=== PATIENT | male | born 1950 | race Two or more races ===

== ENCOUNTER 2016-11-18 18:25 | Inpatient (IN) | payer MEDICAID ==
[~2016-11-18] VITALS: Ht 171.4 cm; Wt 99.8 kg
[2016-11-18 19:24] LABS: Basophils # (auto) 0 uL; Basophils % (auto) 0.4 % (0.0-2.0); DEFINITIVE VIEW TRANSMISSION; Eosinophils # (auto) 0.2 uL; Eosinophils % (auto) 2.2 % (0.0-7.0); Hematocrit 51.1 % (41.0-53.0); Hemoglobin 16.6 g/dL (13.5-17.5); Lymphocytes # (auto) 3.5 uL; Lymphocytes % (auto) 31.8 % (10.0-50.0); Mean Corpuscular Hemoglobin 26.4 pg (28.0-32.0); Mean Corpuscular Hgb Conc. 32.5 g/dL (32.0-36.0); Mean Corpuscular Volume 81.4 fL (80.0-100.0); Monocytes % (auto) 9.3 % (0.0-12.0); Neutrophils # (auto) 6.1 uL; Neutrophils % (auto) 56.3 % (37.0-80.0); Platelet Count (auto) 194 10^3/uL (140-450); Red Cell Distribution Width 15.4 % (11.6-16.0); White Blood Cell 10.9 10^3/uL (4.4-10.8)
[2016-11-18 19:40] LABS: Albumin 4.3 g/dL (3.4-5.0); Bilirubin, Total 0.6 mg/dL (0.2-1.0); Calcium 8.8 mg/dL (8.5-10.1); Potassium 3.7 mmol/L (3.5-5.1); Total Protein 7.7 g/dL (6.4-8.2)
[2016-11-18 19:46] LABS: Urine Bilirubin Negative (Negative); Urine Blood 3+ /uL (Negative); Urine Color Red (Yellow); Urine Glucose Normal (Normal); Urine Ketone Negative (Negative); Urine Nitrite Negative (Negative); Urine RBC 24891 /hpf (0 - 3); Urine Urobilinogen Normal (Negative); Urine pH 7.5 (5.0-8.0)
[2016-11-19] MEDS ORDERED: LISINOPRIL 20 MG TAB PO ONE (08:00)
[2016-11-19] MEDS ORDERED: amLODIPine BESYLATE 5 MG TAB PO ONE (08:00)
[2016-11-19] MEDS ORDERED: METOPROLOL TARTRATE 50 MG TAB PO ONE (08:00)
[2016-11-19 11:50] VITALS: BP 137/86
[2016-11-19] MEDS ORDERED: ACETAMINOPHEN 500 MG TAB PO PRN (12:00)
[2016-11-19] MEDS ORDERED: cefTRIAXone 1GM/50ML D5W 50 ML IV ONE (12:00)
[2016-11-19] MEDS ORDERED: MORPHINE SULF INJ 2 MG/ML SYRINGE 1ML IV PRN ×2 (12:00)
[2016-11-19] MEDS: ACCU-CHEK COMFORT CURVE STRIP VI SCH ×3 (12:00→23:28)
[2016-11-19] MEDS ORDERED: DEXTROSE (50%) 50ML SYRG IV PRN (12:00)
[2016-11-19] MEDS ORDERED: PROMETHAZINE HCL 25 MG/ML 1ML IV PRN (12:00)
[2016-11-19] MEDS ORDERED: TEMAZEPAM 15 MG CAP PO PRN (12:00)
[2016-11-19] MEDS ORDERED: HYDROcodone-ACET 5/325MG TAB PO PRN (12:00)
[2016-11-19] MEDS ORDERED: LORazepam 0.5 MG TAB PO PRN (12:00)
[2016-11-19] MEDS ORDERED: NITROGLYCERIN 0.4 MG SL TAB SL PRN (12:00)
[2016-11-19] MEDS: SODIUM CHLORIDE 0.9% 1,000 ML IV SCH ×2 (12:39→22:00)
[2016-11-19] MEDS: FAMOTIDINE 20 MG TAB PO SCH ×2 (13:37→21:57)
[2016-11-19] MEDS ORDERED: LIDOCAINE 2% JELLY 11ml (GLYDO) UR ONE (15:45)
[2016-11-19 17:41] VITALS: BP 141/77
[2016-11-19 22:03] VITALS: BP 132/74
[2016-11-20 05:08] VITALS: BP 139/80
[2016-11-20 05:51] LABS: Basophils # (auto) 0 uL; Basophils % (auto) 0.2 % (0.0-2.0); DEFINITIVE VIEW TRANSMISSION; Eosinophils # (auto) 0.2 uL; Eosinophils % (auto) 1.7 % (0.0-7.0); Hematocrit 45.6 % (41.0-53.0); Hemoglobin 14.6 g/dL (13.5-17.5); Lymphocytes # (auto) 2.9 uL; Lymphocytes % (auto) 23.7 % (10.0-50.0); Mean Corpuscular Hemoglobin 26.2 pg (28.0-32.0); Mean Corpuscular Hgb Conc. 32.1 g/dL (32.0-36.0); Mean Corpuscular Volume 81.7 fL (80.0-100.0); Mean Platelet Volume 10.6 fL (7.4-10.4); Monocytes # (auto) 1.1 uL; Monocytes % (auto) 8.9 % (0.0-12.0); Neutrophils # (auto) 8.2 uL; Neutrophils % (auto) 65.5 % (37.0-80.0); Platelet Count (auto) 182 10^3/uL (140-450); Red Cell Distribution Width 16.1 % (11.6-16.0); White Blood Cell 12.4 10^3/uL (4.4-10.8)
[2016-11-20 06:03] LABS: Potassium 3.8 mmol/L (3.5-5.1)
[2016-11-20 06:09] LABS: Albumin 3.6 g/dL (3.4-5.0); BUN/Creatinine Ratio 13.3; Calcium 8.3 mg/dL (8.5-10.1)
[2016-11-20 06:21] LABS: Bilirubin, Total 0.7 mg/dL (0.2-1.0); Total Protein 6.7 g/dL (6.4-8.2)
[2016-11-20] MEDS: ACCU-CHEK COMFORT CURVE STRIP VI SCH (06:22)
[2016-11-20] MEDS: SODIUM CHLORIDE 0.9% 1,000 ML IV SCH ×2 (07:49→17:18)
[2016-11-20 08:24] VITALS: BP 140/92
[2016-11-20] MEDS: cefTRIAXone 1GM/50ML D5W 50 ML IV SCH (09:35)
[2016-11-20] MEDS: FAMOTIDINE 20 MG TAB PO SCH ×2 (09:36→21:31)
[2016-11-20] MEDS ORDERED: MECL-87 PO (11:43)
[2016-11-20] MEDS ORDERED: CHOL20007 PO (11:44)
[2016-11-20] MEDS ORDERED: METO-159 PO (11:45)
[2016-11-20] MEDS ORDERED: PRAV20TA3 PO ×2 (11:49→11:56)
[2016-11-20] MEDS ORDERED: METF-312 PO (11:50)
[2016-11-20] MEDS ORDERED: AMLO5TAB2 PO (11:51)
[2016-11-20] MEDS ORDERED: LISI40TA PO (11:52)
[2016-11-20] MEDS ORDERED: ASPI325T4 PO (11:52)
[2016-11-20 12:51] VITALS: BP 145/86
[2016-11-20 16:42] VITALS: BP 165/94
[2016-11-20 21:37] VITALS: BP 144/85
[2016-11-20] MEDS: METOPROLOL TARTRATE 50 MG TAB PO SCH (23:05)
[2016-11-21 04:33] VITALS: BP 133/86
[2016-11-21] MEDS: SODIUM CHLORIDE 0.9% 1,000 ML IV SCH (06:13)
[2016-11-21 09:00] VITALS: BP 143/86
[2016-11-21] MEDS ORDERED: amLODIPine BESYLATE 5 MG TAB PO SCH (10:00)
[2016-11-21] MEDS ORDERED: LISINOPRIL 20 MG TAB PO SCH (10:00)
[2016-11-21] MEDS: cefTRIAXone 1GM/50ML D5W 50 ML IV SCH (10:02)
[2016-11-21] MEDS: METOPROLOL TARTRATE 50 MG TAB PO SCH (10:06)
[2016-11-21] MEDS: FAMOTIDINE 20 MG TAB PO SCH (10:09)
[2016-11-21 12:38] VITALS: BP 142/73
[2016-11-21 12:53] LABS: Hepatitis B Surface Antibody Negative
[2016-11-21 13:47] VITALS: BP 143/86
[2016-11-21 14:40] VITALS: BP 142/73
== END 2016-11-21 14:40 | disposition home or self-care (01) | DRG 501 ==
LOC: ER 18:31 → TELE 18:32 → TELE-EAST 11-19 13:32 → EAST 11-21 07:42
PROVIDERS: ADMIT Internal Medicine; ATTEND Internal Medicine
DX: N40.1 Benign prostatic hyperplasia with lower urinary tract symptoms (principal); N28.1 Cyst of kidney, acquired; I10 Essential (primary) hypertension; E78.5 Hyperlipidemia, unspecified; R73.9 Hyperglycemia, unspecified; R79.89 Other specified abnormal findings of blood chemistry; E66.9 Obesity, unspecified; I25.10 Atherosclerotic heart disease of native coronary artery without angina pectoris; R31.9 Hematuria, unspecified; N40.0 Benign prostatic hyperplasia without lower urinary tract symptoms; Z79.82 Long term (current) use of aspirin; R33.8 Other retention of urine; Z82.49 Family history of ischemic heart disease and other diseases of the circulatory system; Z90.79 Acquired absence of other genital organ(s); Z95.5 Presence of coronary angioplasty implant and graft; Z68.34 Body mass index [BMI] 34.0-34.9, adult
CPT/HCPCS: 36415; 71010; 76775; 80053; 81001; 82962; 83036; 85025; 85049; 85652; 86141; 86704; 86706; 86708; 86803; 87086; 87340; J0696

== ENCOUNTER 2017-02-19 08:27 | Emergency (ER) | payer MEDICAID ==
[~2017-02-19] VITALS: Ht 172.7 cm; Wt 102.1 kg
[~2017-02-19 08:27] MED LIST: AMLO5TAB2 PO; ASPI325T4 PO; CHOL20007 PO; LISI40TA PO; MECL-87 PO; METF-312 PO; METO-159 PO; PRAV20TA3 PO
[2017-02-19 09:23] LABS: Urine Bilirubin Negative (Negative); Urine Color Colorless (Yellow); Urine Glucose Normal (Normal); Urine Ketone Negative (Negative); Urine Nitrite Negative (Negative); Urine RBC 1 /hpf (0 - 3); Urine Urobilinogen Normal (Negative); Urine pH 6.5 (5.0-8.0)
[2017-02-19 09:50] LABS: Urine Blood 2+ /uL (Negative)
[2017-02-19 10:47] VITALS: BP 141/83
[2017-02-19] MEDS ORDERED: LIDOCAINE HCL 2% TOP JELLY 5ML TOP ONE (22:56)
== END 2017-02-19 10:48 | disposition home or self-care (01) ==
LOC: ER 08:27
DX: R31.9 Hematuria, unspecified (principal); I25.10 Atherosclerotic heart disease of native coronary artery without angina pectoris; I10 Essential (primary) hypertension; E11.9 Type 2 diabetes mellitus without complications; E78.5 Hyperlipidemia, unspecified; Z79.82 Long term (current) use of aspirin; Z91.041 Radiographic dye allergy status; Z91.013 Allergy to seafood
CPT/HCPCS: 81001

== ENCOUNTER 2017-02-19 21:18 | Emergency (ER) | payer MEDICAID ==
[~2017-02-19] VITALS: Ht 172.7 cm; Wt 99.8 kg
[2017-02-19 22:28] LABS: Basophils # (auto) 0 uL; Basophils % (auto) 0.4 % (0.0-2.0); DEFINITIVE VIEW TRANSMISSION; Eosinophils # (auto) 0.3 uL; Eosinophils % (auto) 2.7 % (0.0-7.0); Hematocrit 51.1 % (41.0-53.0); Hemoglobin 16.6 g/dL (13.5-17.5); Lymphocytes # (auto) 2.3 uL; Lymphocytes % (auto) 21.2 % (10.0-50.0); Mean Corpuscular Hemoglobin 26.4 pg (28.0-32.0); Mean Corpuscular Hgb Conc. 32.5 g/dL (32.0-36.0); Mean Corpuscular Volume 81.2 fL (80.0-100.0); Mean Platelet Volume 10.4 fL (7.4-10.4); Monocytes # (auto) 1.2 uL; Monocytes % (auto) 10.8 % (0.0-12.0); Neutrophils # (auto) 7.2 uL; Neutrophils % (auto) 64.9 % (37.0-80.0); Platelet Count (auto) 200 10^3/uL (140-450); Red Cell Distribution Width 15.4 % (11.6-16.0); White Blood Cell 11.1 10^3/uL (4.4-10.8)
[2017-02-19 22:49] LABS: Albumin 4.1 g/dL (3.4-5.0); BUN/Creatinine Ratio 8.5; Calcium 8.7 mg/dL (8.5-10.1); Potassium 3.5 mmol/L (3.5-5.1)
[2017-02-19 22:56] LABS: Bilirubin, Total 0.5 mg/dL (0.2-1.0); Total Protein 7.9 g/dL (6.4-8.2)
[2017-02-19] MEDS ORDERED: MORPHINE SULF INJ 2 MG/ML SYRINGE 1ML IV ONE (23:45)
[2017-02-19] MEDS ORDERED: ONDANSETRON HCL 4 MG/2 ML VIAL IV ONE (23:45)
[2017-02-20] MEDS ORDERED: LIDOCAINE HCL 2% TOP JELLY 5ML TOP ONE (01:00)
[2017-02-20 02:10] VITALS: BP 143/79
[2017-02-20] MEDS ORDERED: CIPROFLOXACIN HCL 500 MG TAB PO ONE (03:00)
[2017-02-20 03:56] LABS: Urine Bilirubin Negative (Negative); Urine Color Red (Yellow); Urine Glucose Normal (Normal); Urine Ketone Negative (Negative); Urine Mucus FEW (None Seen); Urine Nitrite Negative (Negative); Urine RBC 116 /hpf (0 - 3); Urine Urobilinogen Normal (Negative)
[2017-02-20 03:57] LABS: Urine Blood 3+ /uL (Negative)
== END 2017-02-20 02:55 | disposition home or self-care (01) ==
LOC: ER 21:20
DX: N39.0 Urinary tract infection, site not specified (principal); N40.0 Benign prostatic hyperplasia without lower urinary tract symptoms; E11.9 Type 2 diabetes mellitus without complications; E78.5 Hyperlipidemia, unspecified; I10 Essential (primary) hypertension; I25.10 Atherosclerotic heart disease of native coronary artery without angina pectoris; Z91.013 Allergy to seafood; Z91.041 Radiographic dye allergy status; Z79.82 Long term (current) use of aspirin; Z79.899 Other long term (current) drug therapy
CPT/HCPCS: 36415; 51702; 80053; 81001; 85025; 96374; 96375; 99284; J2270; J2405

== ENCOUNTER 2017-03-27 14:09 | Emergency (ER) | payer MEDICAID ==
[~2017-03-27] VITALS: Ht 172.7 cm; Wt 100.7 kg
[2017-03-27 15:33] VITALS: BP 152/73
== END 2017-03-27 15:52 | disposition home or self-care (01) ==
LOC: ER 14:43
DX: N40.1 Benign prostatic hyperplasia with lower urinary tract symptoms (principal); N39.0 Urinary tract infection, site not specified; I25.10 Atherosclerotic heart disease of native coronary artery without angina pectoris; E11.9 Type 2 diabetes mellitus without complications; E78.5 Hyperlipidemia, unspecified; I10 Essential (primary) hypertension; Z91.041 Radiographic dye allergy status; Z79.82 Long term (current) use of aspirin; Z79.899 Other long term (current) drug therapy; Z91.013 Allergy to seafood
CPT/HCPCS: 81002

== ENCOUNTER 2017-05-03 05:55 | Emergency (ER) | payer MEDICAID ==
[~2017-05-03] VITALS: Ht 172.7 cm; Wt 99.8 kg
[~2017-05-03 05:55] MED LIST changes: -METF-312 PO; +METF-370 PO
[2017-05-03 06:11] VITALS: BP 179/85
== END 2017-05-03 07:49 | disposition home or self-care (01) ==
LOC: ER 05:55
DX: R31.9 Hematuria, unspecified (principal); E11.9 Type 2 diabetes mellitus without complications; I25.10 Atherosclerotic heart disease of native coronary artery without angina pectoris; E78.5 Hyperlipidemia, unspecified; I10 Essential (primary) hypertension; Z87.440 Personal history of urinary (tract) infections; Z91.041 Radiographic dye allergy status; Z79.82 Long term (current) use of aspirin; Z79.899 Other long term (current) drug therapy; Z91.013 Allergy to seafood
CPT/HCPCS: 81002

== ENCOUNTER 2017-05-04 16:30 | Emergency (ER) | payer MEDICAID ==
[~2017-05-04] VITALS: Ht 172.7 cm; Wt 99.8 kg
[2017-05-04 17:27] LABS: Urine Bilirubin Negative (Negative); Urine Glucose Normal (Normal); Urine Ketone Negative (Negative); Urine Nitrite Negative (Negative); Urine RBC 75007 /hpf (0 - 3); Urine Urobilinogen Normal (Negative); Urine pH 7.5 (5.0-8.0)
[2017-05-04 17:36] LABS: Urine Blood 3+ /uL (Negative); Urine Color Red (Yellow)
[2017-05-04 17:44] LABS: Basophils # (auto) 0 uL; Basophils % (auto) 0.2 % (0.0-2.0); CONDITION Y; DEFINITIVE SEE PRINTOUT; Eosinophils # (auto) 0.2 uL; Eosinophils % (auto) 1.8 % (0.0-7.0); Hematocrit 48.9 % (41.0-53.0); Lymphocytes # (auto) 2.6 uL; Lymphocytes % (auto) 26.8 % (10.0-50.0); Mean Corpuscular Hemoglobin 26.7 pg (28.0-32.0); Mean Corpuscular Hgb Conc. 32.7 g/dL (32.0-36.0); Mean Corpuscular Volume 81.5 fL (80.0-100.0); Mean Platelet Volume 10.4 fL (7.4-10.4); Monocytes % (auto) 10.4 % (0.0-12.0); Neutrophils # (auto) 5.9 uL; Neutrophils % (auto) 60.8 % (37.0-80.0); Platelet Count (auto) 183 10^3/uL (140-450); White Blood Cell 9.8 10^3/uL (4.4-10.8)
[2017-05-04 17:53] LABS: Albumin 3.9 g/dL (3.4-5.0); Calcium 8.5 mg/dL (8.5-10.1); Potassium 3.3 mmol/L (3.5-5.1)
[2017-05-04 17:54] LABS: BUN/Creatinine Ratio 8.7
[2017-05-04 18:05] LABS: Bilirubin, Total 0.6 mg/dL (0.2-1.0); Total Protein 7.6 g/dL (6.4-8.2)
[2017-05-04 21:15] VITALS: BP 137/88
== END 2017-05-04 22:07 | disposition home or self-care (01) ==
LOC: ER 16:37
DX: N40.1 Benign prostatic hyperplasia with lower urinary tract symptoms (principal); R31.9 Hematuria, unspecified; N39.0 Urinary tract infection, site not specified; I25.10 Atherosclerotic heart disease of native coronary artery without angina pectoris; E11.9 Type 2 diabetes mellitus without complications; E78.5 Hyperlipidemia, unspecified; I10 Essential (primary) hypertension; I25.2 Old myocardial infarction; Z91.041 Radiographic dye allergy status; Z79.82 Long term (current) use of aspirin; Z79.899 Other long term (current) drug therapy; Z87.440 Personal history of urinary (tract) infections
CPT/HCPCS: 36415; 80053; 81001; 85025

== ENCOUNTER 2017-05-26 01:25 | Emergency (ER) | payer MEDICAID ==
[~2017-05-26] VITALS: Ht 172.7 cm; Wt 102.1 kg
[2017-05-26 07:26] VITALS: BP 159/82
== END 2017-05-26 08:25 | disposition home or self-care (01) ==
LOC: ER 01:25
DX: T83.9XXA Unspecified complication of genitourinary prosthetic device, implant and graft, initial encounter (principal); I25.10 Atherosclerotic heart disease of native coronary artery without angina pectoris; E11.9 Type 2 diabetes mellitus without complications; E78.5 Hyperlipidemia, unspecified; I10 Essential (primary) hypertension; I25.2 Old myocardial infarction; Y92.89 Other specified places as the place of occurrence of the external cause; Z91.041 Radiographic dye allergy status; Z79.82 Long term (current) use of aspirin
CPT/HCPCS: 51700; 51702

== ENCOUNTER 2018-06-14 08:30 | Inpatient (IN) | payer MEDICARE ==
[~2018-06-14] VITALS: Ht 172.7 cm; Wt 100.0 kg
[2018-06-14 09:14] LABS: Urine Bacteria FEW /hpf (None Seen); Urine Blood 3+ /uL (Negative); Urine Specific Gravity 1.015 (1.001-1.035); Urine WBC 776 /hpf (0 - 3); Urine WBC Clumps PRESENT /hpf (None Seen)
[2018-06-14 09:35] LABS: Basophils # (auto) 0.1 uL; Basophils % (auto) 0.8 % (0.0-2.0); Eosinophils # (auto) 0.1 uL; Eosinophils % (auto) 1.7 % (0.0-7.0); Hematocrit 42.6 % (41.0-53.0); Hemoglobin 13.9 g/dL (13.5-17.5); Lymphocytes # (auto) 1.8 uL; Lymphocytes % (auto) 25.1 % (10.0-50.0); Mean Corpuscular Hemoglobin 27.1 pg (28.0-32.0); Mean Corpuscular Hgb Conc. 32.7 g/dL (32.0-36.0); Mean Corpuscular Volume 82.9 fL (80.0-100.0); Monocytes # (auto) 0.6 uL; Neutrophils # (auto) 4.6 uL; Neutrophils % (auto) 64.4 % (37.0-80.0); Nucleated Red Blood Cells % 0.1 %; Platelet Count (auto) 169 10^3/uL (140-450); Red Blood Cells 5.14 10^6/uL (4.5-5.90); Red Cell Distribution Width 15.6 % (11.8-14.3); White Blood Cell 7.2 10^3/uL (4.4-10.8)
[2018-06-14 09:46] LABS: BUN/Creatinine Ratio 7.6; Bilirubin, Total 0.5 mg/dL (0.2-1.0); Calcium 8.4 mg/dL (8.5-10.1); Potassium 3.7 mmol/L (3.5-5.1); Total Protein 7.3 g/dL (6.4-8.2)
[2018-06-14 09:47] LABS: INR 1.06 (0.9-1.15); Partial Thromboplastin Time 28.3 sec (23.78-33.04); Prothrombin Time 11.3 sec (9.27-12.13)
[2018-06-14] MEDS ORDERED: cefTRIAXone SOD 1,000 MG VL IM ONE (10:00)
[2018-06-14] MEDS ORDERED: LIDOCAINE 1% HCL (LOCAL ANESTH.) INJ 20ML MDV ONE (10:57)
[2018-06-14] MEDS ORDERED: LIDOCAINE 1% HCL (LOCAL ANESTH.) INJ 20ML MDV ID ONE (11:30)
[2018-06-14] MEDS ORDERED: SODIUM CHLORIDE 0.9% 1,000 ML IV ONE (11:32)
[2018-06-14] MEDS ORDERED: metroNIDAZOLE 500MG/100ML 100 ML IV ONE (11:45)
[2018-06-14] MEDS ORDERED: cefTRIAXone 1GM/10ml IVPUSH 10 ML IV ONE ×2 (11:45→12:00)
[2018-06-14] MEDS ORDERED: MORPHINE SULFATE 4 MG/ML SYR/VIAL IV ONE (11:45)
[2018-06-14] MEDS ORDERED: ONDANSETRON HCL 4 MG/2 ML VIAL IV ONE (11:45)
[2018-06-14] MEDS ORDERED: HYDROcodone-ACET 5/325MG TAB PO PRN (12:00)
[2018-06-14] MEDS ORDERED: LORazepam 0.5 MG TAB PO PRN (12:00)
[2018-06-14] MEDS ORDERED: TEMAZEPAM 15 MG CAP PO PRN (12:00)
[2018-06-14] MEDS ORDERED: MORPHINE SULFATE 4 MG/ML SYR/VIAL IV PRN (12:00)
[2018-06-14] MEDS ORDERED: PROMETHAZINE HCL 25 MG/ML 1ML IV PRN (12:00)
[2018-06-14] MEDS ORDERED: ACETAMINOPHEN 500 MG TAB PO PRN (12:00)
[2018-06-14] MEDS ORDERED: NITROGLYCERIN 0.4 MG SL TAB SL PRN (12:00)
[2018-06-14] MEDS: metroNIDAZOLE 500MG/100ML 100 ML IV SCH ×2 (12:00→17:43)
[2018-06-14] MEDS ORDERED: MORPHINE SULF INJ 2 MG/ML SYRINGE 1ML IV PRN (12:00)
[2018-06-14] MEDS ORDERED: DEXTROSE (50%) 50ML SYRG IV PRN (12:00)
[2018-06-14] MEDS: SODIUM CHLORIDE 0.9% 1,000 ML IV SCH ×2 (13:00→21:43)
[2018-06-14 14:30] VITALS: BP 155/77
[2018-06-14 16:35] VITALS: BP 151/77
[2018-06-14] MEDS: InsuLIN REG 1unit/0.01ml Soln (100units/ml) SC SCH ×2 (17:00→21:43)
[2018-06-14] MEDS: ACCU-CHEK COMFORT CURVE STRIP VI SCH ×2 (17:16→21:43)
[2018-06-14] MEDS: CHOLECALCIFEROL (VITD3) 1,000 UNIT TAB PO SCH (17:42)
[2018-06-14] MEDS: PRAVASTATIN SODIUM 20 MG TAB PO SCH (17:43)
[2018-06-14] MEDS: METOPROLOL TARTRATE 50 MG TAB PO SCH (21:43)
[2018-06-15] MEDS: metroNIDAZOLE 500MG/100ML 100 ML IV SCH ×4 (00:17→18:22)
[2018-06-15 05:15] VITALS: BP 148/76
[2018-06-15] MEDS: InsuLIN REG 1unit/0.01ml Soln (100units/ml) SC SCH ×4 (06:16→22:00)
[2018-06-15] MEDS: ACCU-CHEK COMFORT CURVE STRIP VI SCH ×4 (06:16→22:00)
[2018-06-15 06:29] LABS: Basophils # (auto) 0.1 uL; Basophils % (auto) 0.9 % (0.0-2.0); Eosinophils # (auto) 0.2 uL; Eosinophils % (auto) 1.9 % (0.0-7.0); Hematocrit 42.3 % (41.0-53.0); Lymphocytes # (auto) 2.4 uL; Lymphocytes % (auto) 29.3 % (10.0-50.0); Mean Corpuscular Hemoglobin 27.4 pg (28.0-32.0); Mean Corpuscular Hgb Conc. 33.2 g/dL (32.0-36.0); Mean Corpuscular Volume 82.7 fL (80.0-100.0); Monocytes # (auto) 0.8 uL; Monocytes % (auto) 9.8 % (0.0-12.0); Neutrophils # (auto) 4.9 uL; Neutrophils % (auto) 58.1 % (37.0-80.0); Platelet Count (auto) 160 10^3/uL (140-450); Red Blood Cells 5.11 10^6/uL (4.5-5.90); Red Cell Distribution Width 15.1 % (11.8-14.3); White Blood Cell 8.4 10^3/uL (4.4-10.8)
[2018-06-15 06:48] LABS: Albumin 3.9 g/dL (3.4-5.0); BUN/Creatinine Ratio 7.1; Bilirubin, Total 0.9 mg/dL (0.2-1.0); Calcium 8.3 mg/dL (8.5-10.1); Potassium 3.7 mmol/L (3.5-5.1); Total Protein 7.1 g/dL (6.4-8.2)
[2018-06-15 08:30] VITALS: BP 159/78
[2018-06-15] MEDS: cefTRIAXone 1GM/10ml IVPUSH 10 ML IV SCH (08:45)
[2018-06-15] MEDS: CHOLECALCIFEROL (VITD3) 1,000 UNIT TAB PO SCH (08:46)
[2018-06-15] MEDS: PANTOPRAZOLE 40 MG TAB PO SCH (08:46)
[2018-06-15] MEDS: LISINOPRIL 20 MG TAB PO SCH (08:47)
[2018-06-15] MEDS: METOPROLOL TARTRATE 50 MG TAB PO SCH ×2 (08:47→23:05)
[2018-06-15] MEDS: amLODIPine BESYLATE 5 MG TAB PO SCH (08:52)
[2018-06-15] MEDS: SODIUM CHLORIDE 0.9% 1,000 ML IV SCH ×2 (11:54→17:56)
[2018-06-15 12:30] VITALS: BP 157/84
[2018-06-15 16:37] VITALS: BP 150/69
[2018-06-15] MEDS: PRAVASTATIN SODIUM 20 MG TAB PO SCH (18:23)
[2018-06-15 22:00] VITALS: BP 154/83
[2018-06-16] MEDS: metroNIDAZOLE 500MG/100ML 100 ML IV SCH ×5 (00:08→23:57)
[2018-06-16] MEDS: SODIUM CHLORIDE 0.9% 1,000 ML IV SCH ×3 (03:56→23:56)
[2018-06-16 04:55] VITALS: BP 140/84
[2018-06-16] MEDS: InsuLIN REG 1unit/0.01ml Soln (100units/ml) SC SCH ×4 (06:32→21:12)
[2018-06-16] MEDS: ACCU-CHEK COMFORT CURVE STRIP VI SCH ×4 (06:32→21:13)
[2018-06-16 09:02] VITALS: BP 139/89
[2018-06-16] MEDS: CHOLECALCIFEROL (VITD3) 1,000 UNIT TAB PO SCH (09:49)
[2018-06-16] MEDS: LISINOPRIL 20 MG TAB PO SCH (09:49)
[2018-06-16] MEDS: cefTRIAXone 1GM/10ml IVPUSH 10 ML IV SCH (09:49)
[2018-06-16] MEDS: METOPROLOL TARTRATE 50 MG TAB PO SCH ×2 (09:50→21:12)
[2018-06-16] MEDS: amLODIPine BESYLATE 5 MG TAB PO SCH (09:50)
[2018-06-16] MEDS: PANTOPRAZOLE 40 MG TAB PO SCH (09:50)
[2018-06-16 12:01] VITALS: BP 154/86
[2018-06-16 17:00] VITALS: BP 147/80
[2018-06-16] MEDS: PRAVASTATIN SODIUM 20 MG TAB PO SCH (17:40)
[2018-06-16 22:00] VITALS: BP 118/59
[2018-06-17 05:00] VITALS: BP 144/68
[2018-06-17] MEDS: metroNIDAZOLE 500MG/100ML 100 ML IV SCH (05:48)
[2018-06-17] MEDS: InsuLIN REG 1unit/0.01ml Soln (100units/ml) SC SCH ×2 (06:44→11:30)
[2018-06-17] MEDS: ACCU-CHEK COMFORT CURVE STRIP VI SCH ×2 (06:45→11:30)
[2018-06-17 08:17] VITALS: BP 154/81
[2018-06-17] MEDS: cefTRIAXone 1GM/10ml IVPUSH 10 ML IV SCH (09:10)
[2018-06-17] MEDS: CHOLECALCIFEROL (VITD3) 1,000 UNIT TAB PO SCH (09:11)
[2018-06-17] MEDS: LISINOPRIL 20 MG TAB PO SCH (09:11)
[2018-06-17] MEDS: PANTOPRAZOLE 40 MG TAB PO SCH (09:11)
[2018-06-17] MEDS: amLODIPine BESYLATE 5 MG TAB PO SCH (09:11)
[2018-06-17] MEDS: METOPROLOL TARTRATE 50 MG TAB PO SCH (09:12)
[2018-06-17] MEDS: SODIUM CHLORIDE 0.9% 1,000 ML IV SCH (09:56)
== END 2018-06-17 11:26 | disposition home or self-care (01) | DRG 725 ==
LOC: ER 08:30 → TELE 08:31 → TELE-EAST 14:10
PROVIDERS: ADMIT Internal Medicine; ATTEND Family Medicine
DX: N40.0 Benign prostatic hyperplasia without lower urinary tract symptoms (principal); J18.9 Pneumonia, unspecified organism; K57.92 Diverticulitis of intestine, part unspecified, without perforation or abscess without bleeding; N39.0 Urinary tract infection, site not specified; N28.1 Cyst of kidney, acquired; E11.9 Type 2 diabetes mellitus without complications; Z83.3 Family history of diabetes mellitus; E78.00 Pure hypercholesterolemia, unspecified; E78.5 Hyperlipidemia, unspecified; I10 Essential (primary) hypertension; I25.10 Atherosclerotic heart disease of native coronary artery without angina pectoris; K76.0 Fatty (change of) liver, not elsewhere classified; Z16.23 Resistance to quinolones and fluoroquinolones; R31.0 Gross hematuria; Z82.49 Family history of ischemic heart disease and other diseases of the circulatory system; Z90.79 Acquired absence of other genital organ(s); Z95.5 Presence of coronary angioplasty implant and graft; B95.7 Other staphylococcus as the cause of diseases classified elsewhere; N40.1 Benign prostatic hyperplasia with lower urinary tract symptoms; E66.9 Obesity, unspecified; Z91.041 Radiographic dye allergy status; Z91.013 Allergy to seafood; Z79.82 Long term (current) use of aspirin; Z79.899 Other long term (current) drug therapy
CPT/HCPCS: 36415; 71045; 74176; 80053; 81001; 82962; 83036; 83605; 84154; 85025; 85610; 85652; 85730; 87040; 87086; 87088; 87186; 96361; 96365; 96375; J0696; J1815; J2001; J3490